=== PATIENT | female | born 1965 | race Caucasian/White ===

== ENCOUNTER 2017-03-04 12:56 | Outpatient (RCR) | payer OTHER ==
[~2017-03-04 12:56] MED LIST: NORCO 325 MG-7.1 TAB PO
== END 2017-03-05 15:18 | disposition still patient (30) ==
LOC: WSOH 12:56
DX: S50.11XA Contusion of right forearm, initial encounter (principal); W23.1XXA Caught, crushed, jammed, or pinched between stationary objects, initial encounter; Y99.0 Civilian activity done for income or pay

== ENCOUNTER 2018-05-12 11:27 | Outpatient (RCR) | payer OTHER | END 2018-07-17 | disposition home or self-care (01) | LOC: WSOH | DX: S81.801A Unspecified open wound, right lower leg, initial encounter (principal); L03.115 Cellulitis of right lower limb; W18.09XA Striking against other object with subsequent fall, initial encounter; W26.9XXA Contact with unspecified sharp object(s), initial encounter; Y92.59 Other trade areas as the place of occurrence of the external cause; Y99.0 Civilian activity done for income or pay; Z72.0 Tobacco use ==